=== PATIENT | male | born 1965 | race Caucasian/White ===

== ENCOUNTER 2020-03-18 22:46 | Emergency (ER) | payer OTHER, SELFPAY ==
[2020-03-18 22:49] VITALS: BP 198/130; PULSE 82; RESP 18; TEMP 36.4; O2SAT 100
--- NOTE | 2020-03-18 22:50 | ED.GENADULT ---
HPI - General Adult General Chief complaint: Wound/Laceration Stated complaint: Head lac Time Seen by Provider: 03/18/20 22:49 Source: patient Mode of arrival: ambulatory Limitations: no limitations History of Present Illness HPI narrative: Patient is a 54-year-old male who sustained a scalp laceration while at work this evening. Patient states a piece of metal flew off of a forklift and hit him in the right forehead. Patient denies loss of consciousness. Patient states it did nearly knocked him to the ground, he had some mild dizziness following, but no current dizziness, numbness, weakness, vision changes, nausea or vomiting. Patient denies any neck pain. He states he is not on any anticoagulation. He has been ambulatory and has not noticed any gait changes. Injury happened approximately an hour ago. Patient states he is up-to-date on his tetanus from a scalp laceration a year ago which required 10 jojo. Related Data Allergies Allergy/AdvReac Type Severity Reaction Status Date / Time No Known Allergies Allergy Verified 03/18/20 23:11 Review of Systems Review of Systems: Narrative: CONSTITUTIONAL: Denies fever CARDIOVASCULAR: Denies chest pain RESPIRATORY: Denies cough or dyspnea. GASTROINTESTINAL: Denies abdominal pain SKIN: Denies rash MUSCULOSKELETAL: Denies back pain NEUROLOGIC: Denies headache PMFSH Past Medical History Medical History (Updated 03/18/20 @ 23:11 by Mariely Fox MD) Borderline hypertension Surgical History Surgical History (Updated 03/18/20 @ 23:06 by Mariely Fox MD) H/O adenoidectomy History of tonsillectomy Social History Social History (Updated 03/18/20 @ 23:06 by Mariely Fox MD) Smoking status: Never smoker Alcohol intake: never Substance use: never Gender identity (if verbalized by the patient): Male Exam Narrative: Exam Narrative: GENERAL: Awake, alert, conversant HEAD: Normocephalic, 2 cm superficial, linear right forehead laceration, no active bleeding, no foreign body, no tissue avulsion. EYES: 2+ PERRLA and EOMI. ENT: Nares clear, no rhinorrhea or epistaxis. Mucous membranes moist. NECK: Supple. No cervical spine midline tenderness. Full flexion and extension without pain or limitation. CHEST: No respiratory distress, breathing even and non labored HEART: Regular rate, sinus rhythm ABDOMEN:Non distended, non tender EXTREMITIES: Normal range of motion. No edema. SKIN: Warm, dry, no rash. NEURO:No focal deficits. Alert and oriented x3. Finger to nose intact bilaterally. EOMs intact without nystagmus. No facial droop/asymmetry noted bilaterally. Grimace intact. Intact sensation in face. Hearing intact bilaterally. Shoulder shrug intact. Strength 5/5 bilateral upper extremities. Strength 5/5 bilateral lower extremities. Reflexes 2+ patellar. Heel to sandy intact bilaterally. Ambulatory with a narrow-base gait, no ataxia. Course Vital Signs Vital signs: Vital Signs Temperature 36.4 C L 03/18/20 22:49 Pulse Rate 82 03/18/20 22:49 Respiratory Rate 18 03/18/20 22:49 Blood Pressure 198/130 H 03/18/20 22:49 Pulse Oximetry 100 03/18/20 22:49 Temperature 36.4 C L 03/18/20 22:49 Pulse Rate 82 03/18/20 22:49 Respiratory Rate 18 03/18/20 22:49 Blood Pressure 198/130 H 03/18/20 22:49 Pulse Oximetry 100 03/18/20 22:49 Procedures Laceration Laceration 1: Date: 03/18/20 Time: 23:08 Site: scalp Side (If applicable): right Size (cm): 2 Description: linear Depth: simple, single layer Local Anesthetic: none Pre-repair: wound explored and irrigated ====== Skin Level ====== Skin layer closed with: dermabond ====== Subcutaneous Layer ====== ====== Muscle Layer ====== ====== Tendon Layer ====== Dressing: Wound was superficial, no gaping tissue deficits. No sutures required. Medical Decision Making [facility]
[2020-03-18 23:20] VITALS: BP 165/94; PULSE 78; RESP 18; TEMP 36.6; O2SAT 98
== END 2020-03-18 23:20 | disposition home or self-care (01) ==
PROVIDERS: Emergency Provider Emergency Medicine
DX: S01.01XA Laceration without foreign body of scalp, initial encounter (principal); I10 Essential (primary) hypertension; W20.8XXA Other cause of strike by thrown, projected or falling object, initial encounter
CPT/HCPCS: 12001; 99283